=== PATIENT | female | born 1990 | race Two or more races ===

== ENCOUNTER 2021-06-12 15:30 | Inpatient (IN) | payer OTHER ==
[~2021-06-12] VITALS: Ht 172.7 cm; Wt 110.7 kg
[2021-07-09] MEDS ORDERED: PRENATAL TABLE1 EAC1 PO (14:25)
[2021-07-12] MEDS ORDERED: PROCTOCREAM-HC30 GM RECTAL (09:30)
== END 2021-07-12 12:46 | disposition home or self-care (01) | DRG 807 ==
LOC: OB/GYN 07-07 15:00 → LDR 07-09 05:47 → OB/GYN 07-11 08:45
PROVIDERS: ADMIT Student in an Organized Health Care Education/Training Program; ATTEND Student in an Organized Health Care Education/Training Program
PROC: 3E0P7VZ Introduction of Hormone into Female Reproductive, Via Natural or Artificial Opening (ICD-10-PCS; 2021-07-09)
PROC: 4A1HXFZ Monitoring of Products of Conception, Cardiac Rhythm, External Approach (ICD-10-PCS; 2021-07-09)
PROC: 10907ZC Drainage of Amniotic Fluid, Therapeutic from Products of Conception, Via Natural or Artificial Opening (ICD-10-PCS; principal; 2021-07-10)
PROC: 0HQ9XZZ Repair Perineum Skin, External Approach (ICD-10-PCS; principal; 2021-07-10)
PROC: 10E0XZZ Delivery of Products of Conception, External Approach (ICD-10-PCS; principal; 2021-07-10)
DX: O24.420 Gestational diabetes mellitus in childbirth, diet controlled (principal); Z37.0 Single live birth; O70.0 First degree perineal laceration during delivery; O14.04 Mild to moderate pre-eclampsia, complicating childbirth; O48.0 Post-term pregnancy; Z3A.40 40 weeks gestation of pregnancy

== ENCOUNTER 2022-12-29 13:35 | Emergency (ER) | payer OTHER ==
[~2022-12-29] VITALS: Ht 172.7 cm; Wt 105.7 kg
[~2022-12-29 13:35] MED LIST: PRENATAL TABLE1 EAC1 PO; PROCTOCREAM-HC30 GM RECTAL
[2022-12-29] MEDS ORDERED: PEPCID AC20 MG PO (17:52)
[2022-12-29] MEDS ORDERED: LEVSIN/SL0.125 MG SL (17:52)
== END 2022-12-29 18:04 | disposition home or self-care (01) ==
LOC: ER 13:35
DX: K52.9 Noninfective gastroenteritis and colitis, unspecified (principal); R11.10 Vomiting, unspecified